=== PATIENT | female | born 1985 | race Caucasian/White ===

== ENCOUNTER 2019-04-22 13:09 | Inpatient (IN) ==
[2019-04-22] MEDS ORDERED: Lidocaine 1% 20 ML MDV INFILT ONE (15:48)
[2019-04-22] MEDS ORDERED: Naloxone 0.4 MG/ML INJ IVP PRN ×2 (15:49→15:50)
[2019-04-22] MEDS ORDERED: Ondansetron ODT 4 MG TAB.RAPDIS SL PRN (15:50)
[2019-04-22] MEDS ORDERED: *HR* Promethazine 25 MG/ML VIAL IVP PRN (15:50)
--- NOTE | 2019-04-22 16:50 | Internal Med History&Physical ---
Date of Encounter: 04/22/19 Time of Encounter: 16:44 Internal Medicine - H&P: HPI Chief complaint: Shortness of breath and cough Admitted From: Intrahospital Transfer Plans for Post Hospital Care: Home History of present illness: Ms. 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 Patient's symptoms began about 2 weeks ago. Was seen in [place] emergency department and diagnosed bronchitis. Discharged on a Z-Franklin. Take this medication to completion but did not have any improvement and she feels worse than she did previously. No sick contacts. Endorses cough productive of whitish sputum as well as shortness of breath, sinus drainage, nasal congestion, and pain in lungs on left side. Subjective fevers and chills. Has chronic nausea that she believes is secondary to kidney disease not particularly worsened usual. Has not missed any dialysis sessions and was last dialyzed yesterday. Recently started back on dialysis after her renal transplant failed about 6 months ago[address] with Dr. Marie. Says that they have been taking off more fluid recently because of her shortness of breath. Labs and imaging at [place]: WBC 10.8 Hg 8.6 PLT 278 Na 133. K 4.8 Cl 91 Bicarb 29 BUN 39 Cr 6.48 CXR Mild interstitial prominence of lung with L basilar opacity and pleural effusion vs pleural scar Past Med Surg Social Fam HX - Past Medical History Medical history: hypertension, renal disease Additional medical history: kidney transplant Psychiatric history: anxiety - Past Surgical History Additional surgical history: Kidney transplant - Social History Smoking Status: Never smoker Smokeless Tobacco Status: No Alcohol use: none Drug use: none Internal Medicine - H&P: Meds Allergy/AdvReac Type Severity Reaction Status Date / Time acetaminophen [From Vicodin] Allergy Hives Verified 11/06/18 08:03 hydrocodone [From Vicodin] Allergy Hives Verified 11/06/18 08:03 All Systems PM: A 10-system review of systems was performed and is negative for pertinent findings except as documented above in the HPI. Review of systems: General: Fevers / Chills / Weight loss / Night sweats Eyes: Blurry Vision / Change in Vision HENT: Ear Pain / Ear Drainage / Rhinorrhea / Throat Pain / Lymphadenopathy Cardiovascular: Chest Pain / Palpatations / Orthopnea / CLINE / Weight gain Lungs: Dyspnea / Wheezing / Cough / Sputum production / Pleurisy Abdomen: Abdomen pain / Abdominal distention / Nausea / Vomiting / Diarrhea / Const : Dysuria / Urinary Frequency / Urinary Urgency / Hematuria Extremities: LE edema / Ext pain / Ext erythema Skin: Rashes / Abrasions / Contusions Psych: Hallucinations / Anxiety / Depression Neuro: Weakness / Numbness / Tingling / Facial Droop / Dysphagia - Constitutional Vitals: Temp Pulse Resp BP Pulse Ox 98.2 F 85 17 132/83 97 04/22/19 15:23 04/22/19 15:23 04/22/19 15:23 04/22/19 15:23 04/22/19 15:23 Exam: General: Ill-appearing and in no acute distress HEENT: No erythema of posterior pharynx. No exudates. Lymphatics: No mandibular or cervical lymphadenopathy Cardiovascular: RRR. No murmurs. No chest wall tenderness. Lungs: Rhonchi in LLQ. Regular chest rise. Abdomen: Non-tender. No rebound or gaurding. Nl bowel sounds. Extremities: No edema. 2+ pulses radial and pedal pulses Skin: No rahses, abrasions, or contusions. Nl cap refill. Psych: Nl attention. A&Ox3 Neuro: blocker and polisher II-XII intact. 5/5 strength. Sensation to light touch and pinprick intact. - Assessment and Plan (1) Sepsis Current Visit: Yes Status: Acute Assessment and plan: Patient with history of end-stage renal disease on immunosuppression presents with 2 weeks of cough and shortness of breath with pleuritic chest pain failing outpatient Z-Franklin in the setting of meeting sepsis criteria on presentation to outside ED (fever 100.5, tachycardic to 123, RR22), LLL rhonchi and physical exam, and chest x-ray concerning for pneumonia. -Was started on antibiotics at outside hospital and given IVF -On admission to [place], vitals has since stabilized -Given her immunosuppressed statu and health care exposure will start with broad spectrum coverage PLAN: - Vancomycin and Cefepime - Sputum cultures - F/u blood cultures @[facility] - Urine strep and legionella Qualifiers: Sepsis type: sepsis due to unspecified organism Sepsis acute organ dysfunction status: without acute organ dysfunction Qualified Code(s): A41.9 - Sepsis, unspecified organism (2) Pneumonia Current Visit: Yes Status: Acute Assessment and plan: Plan per above Qualifiers: Pneumonia type: due to unspecified organism Laterality: left Lung location: lower lobe of lung Qualified Code(s): J18.1 - Lobar pneumonia, unspecified organism (3) Failure of outpatient treatment Current Visit: Yes Status: Acute Assessment and plan: Failed outpatient azithromycin therapy (4) ESRD (end stage renal disease) Current Visit: Yes Status: Acute Assessment and plan: Has not missed any dialysis sessions and was last dialyzed yesterday. Recently started back on dialysis after her renal transplant failed about 6 months ago[address] Follow[address] with Dr. Marie. Says that they have been taking off more fluid recently because of her shortness of breath. - Consult to neprhology - Will re-order home meds once verified (5) Alports syndrome Current Visit: Yes Status: Acute (6) Renovascular hypertension Current Visit: Yes Status: Acute Assessment and plan: Will re-order home meds once verified (7) Immunosuppression due to drug therapy Current Visit: Yes Status: Acute Assessment and plan: Putting a patient risk for adverse events. - Will re-order home meds once verified
[2019-04-22] MEDS: *HR* Heparin 5,000 UNIT/ML VIAL SQ SCH (17:48)
[2019-04-22] MEDS ORDERED: Doxycycline 100 MG in 0.9 % Sodium Chloride Mini Bag 100 ML IVPB SCH (18:00)
[2019-04-22] MEDS ORDERED: cefTRIAXone 2,000 MG in Water for inj. (sterile) 20 ML IVP SCH (18:00)
[2019-04-22] MEDS ORDERED: Cefepime HCl 1,000 MG in Water for inj. (sterile) 10 ML IVP SCH (19:30)
[2019-04-23] MEDS: *HR* Heparin 5,000 UNIT/ML VIAL SQ SCH ×2 (04:37→17:15)
[2019-04-23 05:24] LABS: Basophils % 0.2 %; Eosinophils % 0.2 %; Hematocrit 26.9 % (35.3-44.9); Immature Granulocytes % 1.4 % (0-4); Lymphocytes # 2.5 K/mcL (0.6-4.6); Lymphocytes % 19.7 %; Mean Corpuscular HGB Conc 29.7 g/dL (31.6-35.5); Mean Corpuscular Hemoglobin 30.2 pg (28.0-33.3); Mean Corpuscular Volume 101.5 fL (83.0-100.0); Mean Platelet Volume 11.6 fL (9.4-12.4); Monocytes # 1.6 K/mcL (0.0-1.3); Monocytes % 12.8 %; Neutrophils # 8.5 K/mcL (1.6-8.9); Nucleated Red Blood Cells 0.2 /100 WBC (0); Platelet Count 244 K/mcL (140-400); Red Blood Count 2.65 M/mcL (3.82-4.97); Red Cell Distribution Width 17.7 % (11.5-14.5); Segmented Neutrophils % 65.7 %; White Blood Count 12.9 K/mcL (4.3-11.1)
[2019-04-23 05:46] LABS: Calcium 7.5 mg/dL (8.6-10.3); Potassium 5.5 mEq/L (3.5-5.1)
[2019-04-23 07:51] LABS: Hepatitis B Surface Antibody 93.63 mIU/mL
[2019-04-23 08:03] LABS: Hepatitis B Surface Antigen Nonreactive (Nonreactive)
--- NOTE | 2019-04-23 11:02 | Internal Med Progress Note ---
Hospitalist Progress Note - Encounter Date of Encounter: 04/23/19 Time of Encounter: 09:45 - Subjective Interval History: Patient seen at bedside. Denies chest pain, shortness of breath, palpitations. Denies fever, chills, rigors. Feeling overall better than yesterday. Unsure about her immunosuppresive meds. No acute event overnight. - Exam Vitals: Temp Pulse Resp BP Pulse Ox 98.3 F 62 18 144/92 98 04/23/19 10:47 04/23/19 10:47 04/23/19 10:47 04/23/19 10:47 04/23/19 10:47 Exam: General: Ill-appearing and in no acute distress HEENT: No erythema of posterior pharynx. No exudates. Lymphatics: No mandibular or cervical lymphadenopathy Cardiovascular: RRR. No murmurs. No chest wall tenderness. Lungs: Lungs CTA, no additional sounds. Abdomen: Non-tender. No rebound or gaurding. Nl bowel sounds. Extremities: No edema. 2+ pulses radial and pedal pulses Skin: No rahses, abrasions, or contusions. Nl cap refill. Psych: Nl attention. A&Ox3 Neuro: director meetings II-XII intact. 5/5 strength. Sensation to light touch and pinprick intact. - Assessment and Plan (1) Sepsis Current Visit: Yes Status: Acute Assessment and Plan: History of end-stage renal disease currently on immunosuppressive drugs. Diagnosed with pneumonia in the right middle lobe with a chest x-ray in the emergency department. At the time of presentation, she had fever, chills, rigors. Has been improving with antibiotics. Follow up on the blood cultures and sputum cultures. Continue vancomycin and cefepime. Restart on immunosuppressive drugs once confirmed with the pharmacy. (2) Pneumonia Current Visit: Yes Status: Acute Assessment and Plan: Chest x-ray evidence of pneumonia. Continue antibiotics. (3) Failure of outpatient treatment Current Visit: Yes Status: Acute Assessment and Plan: Failed outpatient azithromycin therapy (4) ESRD (end stage renal disease) Current Visit: Yes Status: Acute Assessment and Plan: No missed dialysis. History of renal transplant. Nephrology onboard. Start the patient on home meds once verified. (5) Alports syndrome Current Visit: Yes Status: Acute (6) Renovascular hypertension Current Visit: Yes Status: Acute Assessment and Plan: Blood pressure has been stable so far. Will re-order home meds once verified (7) Immunosuppression due to drug therapy Current Visit: Yes Status: Acute Assessment and Plan: Putting a patient risk for adverse events. - Will re-order home meds once verified (8) Diarrhea Current Visit: Yes Status: Acute Assessment and Plan: Chronic Contnue immodium as needed , pt takes at home - Time Spent with Patient Total time spent is greater than 50% in coordination of care (as documented) at patient's floor/unit and/or counseling patient: Internal Medicine: Result - Labs CBC & Chem 7: 04/23/19 04:34 04/23/19 04:34 Labs: Short CBC 04/23/19 Range/Units 04:34 WBC 12.9 H (4.3-11.1) K/mcL Hgb 8.0 L (11.5-15.4) g/dL Hct 26.9 L (35.3-44.9) % Plt Count 244 (140-400) K/mcL Neutrophils # 8.5 (1.6-8.9) K/mcL BMP 04/23/19 04:34 Sodium 130 L Potassium 5.5 H Chloride 93 L Carbon Dioxide 23 BUN 46 H Creatinine 7.32 H Glucose 104 Calcium 7.5 L - Impressions Impressions Chest X-Ray 04/22/19 17:03 IMPRESSION: Prominence of the right cardiac border compared to prior exams suggesting possible right middle lobe consolidation from pneumonia. Mild patchy left lower lobe airspace opacity may represent pneumonia. D/ / 04/22/2019 17:16:41 Balta May MD / dawna Interpreting Provider: Balta May MD Consult Discharge Plan - Plan Referrals: Autumn Reese, PIE CRUST MIXER [Primary Care Provider] - (1) Sepsis Qualifiers: Sepsis type: sepsis due to unspecified organism Sepsis acute organ dysfunction status: without acute organ dysfunction Qualified Code(s): A41.9 - Sepsis, unspecified organism (2) Pneumonia Qualifiers: Pneumonia type: due to unspecified organism Laterality: left Lung location: lower lobe of lung Qualified Code(s): J18.1 - Lobar pneumonia, unspecified organism (8) Diarrhea Qualifiers: Diarrhea type: unspecified type Qualified Code(s): R19.7 - Diarrhea, unspec ified
[2019-04-23] MEDS ORDERED: 0.9 % Sodium Chloride 250 ML IVC PRN (11:07)
[2019-04-23] MEDS ORDERED: *HR* Heparin 10,000 UNIT/10 ML VIAL IV PRN (11:07)
[2019-04-23] MEDS ORDERED: 0.9 % Sodium Chloride 1,000 ML PRIME SCH (11:15)
--- NOTE | 2019-04-23 13:05 | Nephrology Consult Note ---
<JustinNadira hinkle Jorge - Last Filed: 04/23/19 14:02> Date of Encounter: 04/23/19 Time of Encounter: 12:59 Assessment and Plan (1) ESRD (end stage renal disease) Status: Acute Current regimen is MWF at [facility]. Plan for HD today. Renal diet Renal vitamins Strict I/O Avoid nephrotoxins and renal dose all medications. Will order additional UF or HD as needed. (2) Alports syndrome Status: Acute History of. (3) Community acquired pneumonia Status: Acute As per primary. Qualifiers: Qualified Code(s): J18.9 - Pneumonia, unspecified organism History of Present Illness - Reason for Consult Consult date: 04/23/19 end stage renal disease Requesting physician: Elijah Lutz - Chief Complaint difficulty in breathing - History of Present Illness Ms. Mejia is a 33 year old female who presented from [place] for shortness of breath. She was transferred to this facility. She has been feeling ill for nearly 2 weeks. Was given a z-morenita by PCP and had no improvement. She has been on HD for approximetly 6 months. She was on HD approximately 10 years ago, and received a kidney transplant. She has been on immunosupression therapy in the past. She is being treated for right middle lobe pneumonia. Denies fever, chills, nausea, vomiting, diarrhea. Admits to poor appetite. Denies chset pain, admits to feeling short of breath. PMH: alport syndrome, failed kidney transplant. [facility] were consulted to manage inpatient HD. HD ordered for today. She has 3 first degree relatives with alport syndrome who were all on HD, they are now. Denies etoh, tobacco use, or illict drug use. Lives at home with significant other. Past Med Surg Social Fam HX - Past Medical History Medical history: hypertension, renal disease Additional medical history: kidney transplant Psychiatric history: anxiety - Past Surgical History Additional surgical history: Kidney transplant - Social History Smoking Status: Never smoker Smokeless Tobacco Status: No Alcohol use: none Drug use: none Medications and Allergies Albuterol Sulfate [Ventolin Hfa] 2 puff IH Q8H PRN 04/23/19 [History] Amlodipine Besylate 2.5 mg PO BID 04/23/19 [History] Aspirin [Lo-Dose Aspirin EC] 81 mg PO DAILY 04/23/19 [History] Calcium Acetate [Phos-LO] 1,334 mg PO TIDWM 04/23/19 [History] Calcium Acetate [Phos-LO] 667 mg PO DAILY 04/23/19 [History] Citalopram Hydrobromide [Citalopram HBr] 10 mg PO DAILY 04/23/19 [History] Famotidine [Heartburn Prevention] 20 mg PO DAILY 04/23/19 [History] Hydrocodone/Acetaminophen [Firebaugh 5-325 Tablet] 1 tab PO Q6H PRN 04/23/19 [History] Levothyroxine [Synthroid] 25 mcg PO 0630 04/23/19 [History] Lidocaine/Prilocaine CREAM [Emla] 1 appl TP AD 04/23/19 [History] Lisinopril [Zestril] 5 mg PO DAILY 04/23/19 [History] Magnesium Oxide [Magnesium] 400 mg PO DAILY 04/23/19 [History] Mycophenolate Sodium [Myfortic] 360 mg PO BID 04/23/19 [History] Ondansetron HCl 4 mg PO Q8H PRN 04/23/19 [History] Sodium Bicarbonate 650 mg PO TID 04/23/19 [History] predniSONE [PredniSONE] 5 mg PO DAILY 04/23/19 [History] Benzonatate [Tessalon] 100 mg PO TID 5 Days #15 capsule 04/25/19 [Rx] Metoprolol [Lopressor] 12.5 mg PO BID tablet 04/25/19 [Rx] levoFLOXacin [Levaquin] 500 mg PO Q48H 6 Days #3 tablet 04/25/19 [Rx] Allergy/AdvReac Type Severity Reaction Status Date / Time hydrocodone [From Vicodin] Allergy Hives Verified 04/23/19 11:00 Review of Systems All Systems review (narrative): The remainder of the systems are negative. Constitutional: fatigue, no chills, no fever(s) Cardiovascular: dyspnea, dyspnea on exertion, no chest pain, no edema Respiratory: cough, no hemoptysis, no wheezing Gastrointestinal: no diarrhea, no nausea, no vomiting Genitourinary Female: no hematuria Exam - Vital Signs Vital signs: Initial Vital Signs Temp Pulse Resp BP Pulse Ox 98.2 F 85 17 132/83 97 04/22/19 15:23 04/22/19 15:23 04/22/19 15:23 04/22/19 15:23 04/22/19 15:23 Vital Signs - Last 8 Hours Temp Pulse Resp BP Pulse Ox 04/23/19 10:47 98.3 F 62 18 144/92 98 04/23/19 06:40 98.2 F 92 18 165/99 96 - General Appearance General appearance: well-developed, well-nourished EENT: ATNC, hearing intact, vision intact Neck: supple Respiratory: clear Cardiology: edema (facial edema noted.), normal S1, normal S2 - Dialysis Access Dialysis Vascular Access: Arteriovenous Fistula thrill: Yes bruit: Yes Gastrointestinal: normoactive bowel sounds, no tenderness, no guarding Integumentary: no rash, warm and dry Neurologic: alert and oriented x3 Musculoskeletal: no deformities, no erythema Psychiatric: mood/affect appropriate, cooperative Results - Lab Results 04/23/19 04:34 04/23/19 04:34 Most recent lab results 04/23/19 04:34 Calcium 7.5 L Consult Discharge Plan - Plan Instructions: Benzonatate (By mouth), Levofloxacin (By mouth) Referrals: Autumn Reese CNP [Primary Care Provider] - 04/30/19 2:00 pm (Please follow up as schedule...) Prescriptions: levoFLOXacin [Levaquin] 500 mg PO Q48H 6 Days #3 tablet Transmission Status: Received by [facility]/pharmacy #[id number] Benzonatate [Tessalon] 100 mg PO TID 5 Days #15 capsule Transmission Status: Received by [facility]/pharmacy #[id number] <Emory Dunbar - Last Filed: 05/04/19 23:16> Date of Encounter: 04/23/19 Assessment and Plan (1) ESRD (end stage renal disease) Status: Acute (2) Alports syndrome Status: Acute (3) Community acquired pneumonia Status: Acute Qualifiers: Qualified Code(s): J18.9 - Pneumonia, unspecified organism Exam - Vital Signs Vital signs: Initial Vital Signs Temp Pulse Resp BP Pulse Ox 98.2 F 85 17 132/83 97 04/22/19 15:23 04/22/19 15:23 04/22/19 15:23 04/22/19 15:23 04/22/19 15:23 Results - Lab Results 04/25/19 02:36 04/25/19 02:36 - Attending Attestation I examined this patient and my medical decision-making was reviewed with the Resident Physician/OPERATIONS SUPERVISOR. I agree with the documented findings, disposition and treatment plan as described except to the extent set forth below. In brief; 33 y o female with PMH of Alport's, ESRD s/p failed renal transplant on HD MWF admitted with progressive SOB despite abx and diagnosed with PNA. renal consulted for ESRD management. Pt seen and examined on HD, doing well. On exam: NAD, facial edema noted, Lungs with good aeration but coarse bilat, Heart S1S2, Abd soft NT/ND, Ext with LE edema bilat and Neuro AAOx3. Continue HD with UF as tolerated. renal diet advised. Fluid restriction advised. Renally dose all meds.
[2019-04-23] MEDS ORDERED: ONDANSETRON HCL 4 MG PO PRN (17:58)
[2019-04-23] MEDS ORDERED: *HR* HYDROcodone/Acet 5/325 mg TABLET PO PRN (17:58)
[2019-04-23] MEDS ORDERED: Cefepime HCl 1,000 MG in 0.9 % Sodium Chloride Mini Bag 100 ML IVPB SCH (18:00)
[2019-04-23] MEDS: amLODIPine 5 MG TABLET PO SCH (20:51)
[2019-04-23] MEDS: Mycophenolate Sodium (DR) 180 MG TABLET.DR PO SCH (20:51)
[2019-04-24] MEDS ORDERED: Melatonin 3 MG TABLET PO ONE ×2 (02:21→20:45)
[2019-04-24 02:39] LABS: Basophils % 0.2 %; Eosinophils # 0.2 K/mcL (0.0-0.6); Eosinophils % 1.7 %; Hematocrit 28.7 % (35.3-44.9); Hemoglobin 8.6 g/dL (11.5-15.4); Immature Granulocytes % 1.1 % (0-4); Lymphocytes % 19.5 %; Mean Corpuscular Hemoglobin 30.3 pg (28.0-33.3); Mean Corpuscular Volume 101.1 fL (83.0-100.0); Mean Platelet Volume 11.2 fL (9.4-12.4); Monocytes # 1.6 K/mcL (0.0-1.3); Neutrophils # 6.2 K/mcL (1.6-8.9); Nucleated Red Blood Cells 0.2 /100 WBC (0); Platelet Count 274 K/mcL (140-400); Red Blood Count 2.84 M/mcL (3.82-4.97); Red Cell Distribution Width 17.3 % (11.5-14.5); Segmented Neutrophils % 61.5 %; White Blood Count 10.1 K/mcL (4.3-11.1)
[2019-04-24 03:04] LABS: Calcium 7.6 mg/dL (8.6-10.3); Potassium 4.1 mEq/L (3.5-5.1)
[2019-04-24] MEDS: Levothyroxine 25 MCG TABLET PO SCH (06:04)
[2019-04-24] MEDS: *HR* Heparin 5,000 UNIT/ML VIAL SQ SCH ×2 (06:04→17:02)
[2019-04-24] MEDS: Aspirin Enteric Coated 81 MG Tablet PO SCH (07:16)
[2019-04-24] MEDS: predniSONE 5 MG TABLET PO SCH (07:16)
[2019-04-24] MEDS: Mycophenolate Sodium (DR) 180 MG TABLET.DR PO SCH ×2 (07:16→20:41)
[2019-04-24] MEDS: Calcium Acetate 667 MG CAPSULE PO SCH ×3 (07:17→15:29)
[2019-04-24] MEDS: Magnesium Oxide 400 MG TABLET PO SCH (07:17)
[2019-04-24] MEDS: amLODIPine 5 MG TABLET PO SCH ×2 (07:17→20:41)
[2019-04-24] MEDS ORDERED: Calcium Acetate 667 MG CAPSULE PO PRN (09:00)
[2019-04-24] MEDS ORDERED: Famotidine 20 MG TABLET PO SCH ×2 (09:00→18:00)
--- NOTE | 2019-04-24 12:18 | Internal Med Progress Note ---
Hospitalist Progress Note - Encounter Date of Encounter: 04/24/19 Time of Encounter: 12:00 - Subjective Interval History: Seen at bedside, had temp of 100 overnight. Endorses cough, denies chest pain or SOB. Deneis chills, rigors, feeling much better than yesterday. No other complaints. - Exam Vitals: Temp Pulse Resp BP Pulse Ox 98.4 F 86 18 137/89 96 04/24/19 10:56 04/24/19 10:56 04/24/19 10:56 04/24/19 10:56 04/24/19 10:56 Exam: General:Alert and oriented and in no acute distress HEENT: No erythema of posterior pharynx. No exudates. Lymphatics: No mandibular or cervical lymphadenopathy Cardiovascular: RRR. No murmurs. No chest wall tenderness. Lungs: Lungs CTA, no additional sounds. Abdomen: Non-tender. No rebound or gaurding. Nl bowel sounds. Extremities: No edema. 2+ pulses radial and pedal pulses Skin: No rahses, abrasions, or contusions. Nl cap refill. Psych: Nl attention. A&Ox3 Neuro: butcher chicken and fish II-XII intact. 5/5 strength. Sensation to light touch and pinprick intact. - Assessment and Plan (1) Sepsis Current Visit: Yes Status: Acute Assessment and Plan: History of end-stage renal disease currently on immunosuppressive drugs. Diagnosed with pneumonia in the right middle lobe with a chest x-ray in the emergency department. At the time of presentation, she had fever, chills, rigors. Has been improving with antibiotics. Did have a temp of 100 overnight. Follow up on the blood cultures and sputum cultures. Continue cefepime. Anticipate discharge tomorrow (2) Pneumonia Current Visit: Yes Status: Acute Assessment and Plan: Chest x-ray evidence of pneumonia. Continue antibiotics. (3) Failure of outpatient treatment Current Visit: Yes Status: Acute Assessment and Plan: Failed outpatient azithromycin therapy (4) ESRD (end stage renal disease) Current Visit: Yes Status: Acute Assessment and Plan: No missed dialysis. History of renal transplant. Nephrology onboard. Start the patient on home meds (5) Alports syndrome Current Visit: Yes Status: Acute (6) Renovascular hypertension Current Visit: Yes Status: Acute Assessment and Plan: Blood pressure has been stable so far. Home meds reordered (7) Immunosuppression due to drug therapy Current Visit: Yes Status: Acute Assessment and Plan: Putting a patient risk for adverse events. Continue mycophenolate (8) Diarrhea Current Visit: Yes Status: Acute Assessment and Plan: Chronic Contnue immodium as needed , pt takes at home (9) Hypothyroidism Current Visit: Yes Status: Acute Assessment and Plan: Continue synthyroid (10) History of renal transplant Current Visit: Yes Status: Acute Assessment and Plan: COntinue the pt homed meds, mycophenolate and prednisone (11) Cough Current Visit: Yes Status: Acute Assessment and Plan: Still coughing, minimal releif with robitussin. WIlll give a trial of tessalon perles - Time Spent with Patient Total time spent is greater than 50% in coordination of care (as documented) at patient's floor/unit and/or counseling patient: Internal Medicine: Result - Labs CBC & Chem 7: 04/24/19 02:03 04/24/19 02:03 Labs: Short CBC 04/24/19 Range/Units 02:03 WBC 10.1 (4.3-11.1) K/mcL Hgb 8.6 L (11.5-15.4) g/dL Hct 28.7 L (35.3-44.9) % Plt Count 274 (140-400) K/mcL Neutrophils # 6.2 (1.6-8.9) K/mcL BMP 04/24/19 02:03 Sodium 137 Potassium 4.1 D Chloride 94 L Carbon Dioxide 30 H BUN 30 H Creatinine 5.15 H Glucose 126 H Calcium 7.6 L Consult Discharge Plan - Plan Referrals: Autumn Reese, EXECUTIVE ASSISTANT [Primary Care Provider] - (1) Sepsis Qualifiers: Sepsis type: sepsis due to unspecified organism Sepsis acute organ dysfunction status: without acute organ dysfunction Qualified Code(s): A41.9 - Sepsis, unspecified organism (2) Pneumonia Qualifiers: Pneumonia type: due to unspecified organism Laterality: left Lung location: lower lobe of lung Qualified Code(s): J18.1 - Lobar pneumonia, unspecified organism (8) Diarrhea Qualifiers: Diarrhea type: unspecified type Qualified Code(s): R19.7 - Diarrhea, unspecified
--- NOTE | 2019-04-24 13:16 | Nephrology Progress Note ---
Date of Encounter: 04/24/19 Time of Encounter: 13:14 - Assessment and Plan (1) ESRD (end stage renal disease) Current Visit: Yes Status: Acute Current regimen is MWF at [facility]. HD completed yesterday, plan for HD tomorrow. Renal diet Renal vitamins Strict I/O Avoid nephrotoxins and renal dose all medications. Will order additional UF or HD as needed. (2) Alports syndrome Current Visit: Yes Status: Acute History of. (3) Community acquired pneumonia Current Visit: Yes Status: Acute As per primary. Qualifiers: Qualified Code(s): J18.9 - Pneumonia, unspecified organism Subjective Principal diagnosis: pneumonia Interval history: Pt seen and examined, is feeling fatigued. Denies chest pain or shortness of breath. Admits to cough. Denies nausea, vomiting, diarrhea. Objective - Vital Signs Vital signs: Vital Signs Temp Pulse Resp BP Pulse Ox 04/24/19 10:56 98.4 F 86 18 137/89 96 04/24/19 06:36 98.5 F 60 18 123/76 95 04/24/19 03:42 99.7 F H 89 17 135/99 96 04/23/19 23:05 99.9 F H 117 17 121/86 93 04/23/19 18:50 99.7 F H 119 17 134/78 100 04/23/19 16:44 99.7 F H 137 18 156/112 99 04/23/19 14:46 98.4 F 16 156/116 04/23/19 14:45 165/119 04/23/19 14:30 161/110 04/23/19 14:15 155/107 04/23/19 14:00 166/109 04/23/19 13:45 151/82 04/23/19 13:30 139/107 04/23/19 13:15 151/109 Intake and Output 04/23/19 04/24/19 04/24/19 23:59 07:59 15:59 Intake Total 460 / 1060 Output Total 0 / 3600 Balance 460 / -2540 Intake: Oral 460 / 460 Output: Urine 0 / 0 Other: # Voids 0 2 Weight 71.8 kg Patient Weight 04/24/19 23:59 Weight 71.8 kg - General Appearance General appearance: Present: well-developed, well-nourished EENT: Present: ATNC, hearing intact, vision intact Neck: Present: supple Respiratory: Present: clear Cardiology: Present: no edema, normal S1, normal S2 Dialysis Vascular Access: Arteriovenous Fistula thrill: Yes bruit: Yes Gastrointestinal: Present: normoactive bowel sounds, no tenderness, no guarding Integumentary: Present: no rash, warm and dry Neurologic: Present: alert and oriented x3 Musculoskeletal: Present: no deformities, no erythema Psychiatric: Present: mood/affect appropriate, cooperative - Lab 04/24/19 02:03 04/24/19 02:03 Most recent lab results 04/24/19 02:03 Calcium 7.6 L Consult Discharge Plan - Plan Referrals: Autumn Reese, LUSTER REPAIRER [Primary Care Provider] -
[2019-04-24] MEDS ORDERED: Aminoglycoside Consult 1 EACH MC ONE (14:18)
[2019-04-24] MEDS: Benzonatate 100 MG CAPSULE PO SCH ×2 (15:29→20:41)
[2019-04-24] MEDS ORDERED: Cefepime HCl 1,000 MG in Water for inj. (sterile) 10 ML IVPB SCH (18:00)
[2019-04-25 03:06] LABS: Basophils % 0.1 %; Eosinophils # 0.2 K/mcL (0.0-0.6); Eosinophils % 2.3 %; Hematocrit 25.6 % (35.3-44.9); Hemoglobin 7.6 g/dL (11.5-15.4); Immature Granulocytes % 1.4 % (0-4); Lymphocytes # 1.7 K/mcL (0.6-4.6); Lymphocytes % 20.7 %; Mean Corpuscular HGB Conc 29.7 g/dL (31.6-35.5); Mean Corpuscular Hemoglobin 30.4 pg (28.0-33.3); Mean Corpuscular Volume 102.4 fL (83.0-100.0); Mean Platelet Volume 11.2 fL (9.4-12.4); Monocytes # 1.2 K/mcL (0.0-1.3); Monocytes % 14.2 %; Neutrophils # 5.1 K/mcL (1.6-8.9); Nucleated Red Blood Cells 0.2 /100 WBC (0); Platelet Count 228 K/mcL (140-400); Red Cell Distribution Width 17.5 % (11.5-14.5); Segmented Neutrophils % 61.3 %; White Blood Count 8.3 K/mcL (4.3-11.1)
[2019-04-25 03:27] LABS: Calcium 8.1 mg/dL (8.6-10.3); Potassium 4.2 mEq/L (3.5-5.1)
[2019-04-25] MEDS: Levothyroxine 25 MCG TABLET PO SCH (05:43)
[2019-04-25] MEDS: *HR* Heparin 5,000 UNIT/ML VIAL SQ SCH (05:43)
--- NOTE | 2019-04-25 05:59 | Electrocardiograph Report ---
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
[2019-04-25] MEDS: Aspirin Enteric Coated 81 MG Tablet PO SCH (07:44)
[2019-04-25] MEDS: predniSONE 5 MG TABLET PO SCH (07:44)
[2019-04-25] MEDS: Calcium Acetate 667 MG CAPSULE PO SCH ×2 (07:44→12:22)
[2019-04-25] MEDS: Mycophenolate Sodium (DR) 180 MG TABLET.DR PO SCH (07:44)
[2019-04-25] MEDS: Magnesium Oxide 400 MG TABLET PO SCH (07:44)
[2019-04-25] MEDS: Benzonatate 100 MG CAPSULE PO SCH (07:44)
[2019-04-25] MEDS: amLODIPine 5 MG TABLET PO SCH (07:45)
[2019-04-25] MEDS ORDERED: 0.9 % Sodium Chloride 250 ML IVC PRN (08:11)
[2019-04-25] MEDS ORDERED: *HR* Heparin 10,000 UNIT/10 ML VIAL IV PRN (08:11)
[2019-04-25] MEDS ORDERED: levoFLOXacin 750 MG TABLET PO ONE (11:02)
--- NOTE | 2019-04-25 11:19 | Discharge Summary ---
- NOTES TO OUTPATIENT PROVIDER Notes to Outpatient Provider: Came wiht PNA, being discharged wiht the oral antibiotic for the total covergae of 10 days. Orders not resulted at time of discharge: Pending orders 04/22/19 16:51 Legionella Antigen [RM] Routine S. Pneumoniae Antigen [RM] Routine 04/22/19 17:36 Culture,Sputum with Gram Stain [RM] Routine Date of Encounter: 04/25/19 Time of Encounter: 09:00 - Discharge Diagnosis (1) Sepsis Priority: Primary Status: Acute Qualifiers: Sepsis type: sepsis due to unspecified organism Sepsis acute organ dysfunction status: without acute organ dysfunction Qualified Code(s): A41.9 - Sepsis, unspecified organism (2) Pneumonia Priority: Secondary Status: Acute Qualifiers: Pneumonia type: due to unspecified organism Laterality: left Lung location: lower lobe of lung Qualified Code(s): J18.1 - Lobar pneumonia, unspecified organism (3) Failure of outpatient treatment Priority: Secondary Status: Acute (4) ESRD (end stage renal disease) Priority: Secondary Status: Acute (5) Alports syndrome Priority: Secondary Status: Acute (6) Renovascular hypertension Priority: Secondary Status: Acute (7) Immunosuppression due to drug therapy Priority: Secondary Status: Acute (8) Diarrhea Priority: Secondary Status: Acute Qualifiers: Diarrhea type: unspecified type Qualified Code(s): R19.7 - Diarrhea, unspecified (9) Hypothyroidism Priority: Secondary Status: Acute Qualifiers: Hypothyroidism type: unspecified Qualified Code(s): E03.9 - Hypothyroidism, unspecified (10) History of renal transplant Priority: Secondary Status: Acute (11) Cough Priority: Secondary Status: Acute Hospital course: Ms. Mejia is a 33 year old female with a past medical history significant for Alport syndrome and ESRD, status post kidney transplant currently on mycophenolate, presents to the hospital from the outside hospital because of the pneumonia. She was initially treated for bronchitis with azithromycin without any relief. In the hospital she was given initially vancomycin and cefepime which was de-escalated to cefepime after MRSA swab was negative. Patient condition improved without antibiotics over the course of 3 days. She also got a regular hemodialysis. Today, she is feeling fine. Denies fever, chills, rigors. Denies shortness of breath. Endorses cough, improving with Tessalon Perles. She will be given one note of some 50 mg of levofloxacin now and 500 mg of levofloxacin every 48 hours for 3 doses to complete a course of 10 days. She is being discharged in stable condition. - Time Spent with Patient Total time spent providing and/or coordinating discharge services: 35 minutes - Discharge Medications Prescriptions: New RX: levoFLOXacin [Levaquin] 500 mg PO Q48H 6 Days #3 tablet RX: Metoprolol [Lopressor] 12.5 mg PO BID tablet RX: Benzonatate [Tessalon] 100 mg PO TID 5 Days #15 capsule Continued RX: Sodium Bicarbonate 650 mg PO TID RX: predniSONE [PredniSONE] 5 mg PO DAILY RX: Ondansetron HCl 4 mg PO Q8H PRN PRN Reason: Nausea RX: Mycophenolate Sodium [Myfortic] 360 mg PO BID RX: Magnesium Oxide [Magnesium] 400 mg PO DAILY RX: Lisinopril [Zestril] 5 mg PO DAILY RX: Lidocaine/Prilocaine CREAM [Emla] 1 appl TP AD RX: Levothyroxine [Synthroid] 25 mcg PO 30 RX: Hydrocodone/Acetaminophen [Comptche 5-325 Tablet] 1 tab PO Q6H PRN PRN Reason: Pain RX: Famotidine [Heartburn Prevention] 20 mg PO DAILY RX: Citalopram Hydrobromide [Citalopram HBr] 10 mg PO DAILY RX: Calcium Acetate [Phos-LO] 667 mg PO DAILY RX: Calcium Acetate [Phos-LO] 1,334 mg PO TIDWM RX: Aspirin [Lo-Dose Aspirin EC] 81 mg PO DAILY RX: Amlodipine Besylate 2.5 mg PO BID RX: Albuterol Sulfate [Ventolin Hfa] 2 puff IH Q8H PRN PRN Reason: Shortness Of Breath Discontinued Metoprolol [Lopressor] 25 mg PO DAILY Home Medications: Albuterol Sulfate [Ventolin Hfa] 2 puff IH Q8H PRN 04/23/19 [History] Amlodipine Besylate 2.5 mg PO BID 04/23/19 [History] Aspirin [Lo-Dose Aspirin EC] 81 mg PO DAILY 04/23/19 [History] Calcium Acetate [Phos-LO] 1,334 mg PO TIDWM 04/23/19 [History] Calcium Acetate [Phos-LO] 667 mg PO DAILY 04/23/19 [History] Citalopram Hydrobromide [Citalopram HBr] 10 mg PO DAILY 04/23/19 [History] Famotidine [Heartburn Prevention] 20 mg PO DAILY 04/23/19 [History] Hydrocodone/Acetaminophen [Comptche 5-325 Tablet] 1 tab PO Q6H PRN 04/23/19 [History] Levothyroxine [Synthroid] 25 mcg PO 0630 04/23/19 [History] Lidocaine/Prilocaine CREAM [Emla] 1 appl TP AD 04/23/19 [History] Lisinopril [Zestril] 5 mg PO DAILY 04/23/19 [History] Magnesium Oxide [Magnesium] 400 mg PO DAILY 04/23/19 [History] Mycophenolate Sodium [Myfortic] 360 mg PO BID 04/23/19 [History] Ondansetron HCl 4 mg PO Q8H PRN 04/23/19 [History] Sodium Bicarbonate 650 mg PO TID 04/23/19 [History] predniSONE [PredniSONE] 5 mg PO DAILY 04/23/19 [History] Benzonatate [Tessalon] 100 mg PO TID 5 Days #15 capsule 04/25/19 [Rx] Metoprolol [Lopressor] 12.5 mg PO BID tablet 04/25/19 [Rx] levoFLOXacin [Levaquin] 500 mg PO Q48H 6 Days #3 tablet 04/25/19 [Rx] Allergies/Adverse Reactions: Allergy/AdvReac Type Severity Reaction Status Date / Time hydrocodone [From Vicodin] Allergy Hives Verified 04/23/19 11:00 Date of admission: 04/23/19 08:41 Primary care physician: Autumn Reese CNP Consults: 04/22/19 16:50 Consult to Nephrology [CONS] Routine Consulting Provider: Kidney Raven/DEISY/ARA/DOROTHEA Reason for Consult: known patient of Dr. Merino here for PNA M/W/F HD Call Completed: No 04/23/19 11:15 Consult to Dialysis [CONS] ONCE 04/25/19 08:15 Consult to Dialysis [CONS] ONCE - Constitutional Vitals: Temp Pulse Resp BP Pulse Ox 98.8 F 85 16 157/103 98 04/25/19 07:49 04/25/19 07:49 04/25/19 07:49 04/25/19 07:49 04/25/19 07:49 Exam: General:Alert and oriented and in no acute distress HEENT: No erythema of posterior pharynx. No exudates. Lymphatics: No mandibular or cervical lymphadenopathy Cardiovascular: RRR. No murmurs. No chest wall tenderness. Lungs: Lungs CTA, no additional sounds. Abdomen: Non-tender. No rebound or gaurding. Nl bowel sounds. Extremities: No edema. 2+ pulses radial and pedal pulses Skin: No rahses, abrasions, or contusions. Nl cap refill. Psych: Nl attention. 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 5/5 strength. Sensation to light touch and pinprick intact. - Patient Status Disposition: Home, Self-Care Condition: Good Functional capacity at discharge: independent ambulation Overall status at discharge: patient is back to baseline - Discharge Instructions Follow Up With: Autumn Reese [employer] [Primary Care Provider] - 04/30/19 2:00 pm (Please follow up as schedule...) - Diet and Activity Activity: increase activity as tolerated Diet: advance to your usual diet
--- NOTE | 2019-04-25 12:43 | Nephrology Progress Note ---
Date of Encounter: 04/25/19 Time of Encounter: 12:41 - Assessment and Plan (1) ESRD (end stage renal disease) Current Visit: Yes Status: Acute Current regimen is M[facility] at [facility]. HD in progress for today. May go home from a renal standpoint. Renal diet Renal vitamins Strict I/O Avoid nephrotoxins and renal dose all medications. Will order additional UF or HD as needed. (2) Alports syndrome Current Visit: Yes Status: Acute History of. (3) Community acquired pneumonia Current Visit: Yes Status: Acute As per primary. Qualifiers: Qualified Code(s): J18.9 - Pneumonia, unspecified organism Subjective Principal diagnosis: pneumonia Interval history: Pt seen and examined, is feeling much better today. Seen in HD, tolerating well. Denies chest pain or shortness of breath. Admits to cough. Denies nausea, vomiting, diarrhea. Objective - Vital Signs Vital signs: Vital Signs Temp Pulse Resp BP Pulse Ox 04/25/19 07:49 98.8 F 85 16 157/103 98 04/25/19 04:15 98.0 F 88 12 157/97 96 04/25/19 00:36 98.1 F 84 16 132/89 95 04/24/19 19:05 98.0 F 90 14 146/93 97 04/24/19 16:20 98.4 F 99 18 117/74 93 Intake and Output 04/24/19 04/25/19 04/25/19 23:59 07:59 15:59 Intake Total 120 / 120 Output Total 0 / 0 Balance 0 / 120 120 / 120 Intake: Oral 120 / 120 Output: Urine 0 / 0 Other: Meal Dinner Breakfast Percent of Meal Consumed 35% 100% Weight 76.4 kg Patient Weight 04/25/19 23:59 Weight 76.4 kg - General Appearance General appearance: Present: well-developed, well-nourished EENT: Present: ATNC, hearing intact, vision intact Neck: Present: supple Respiratory: Present: clear Cardiology: Present: no edema, normal S1, normal S2 Dialysis Vascular Access: Arteriovenous Fistula thrill: Yes bruit: Yes Gastrointestinal: Present: normoactive bowel sounds, no tenderness, no guarding Integumentary: Present: no rash, warm and dry Neurologic: Present: alert and oriented x3 Musculoskeletal: Present: no deformities, no erythema Psychiatric: Present: mood/affect appropriate, cooperative - Lab 04/25/19 02:36 04/25/19 02:36 Most recent lab results 04/25/19 02:36 Calcium 8.1 L Consult Discharge Plan - Plan Referrals: Autumn Reese CNP [Primary Care Provider] - 04/30/19 2:00 pm (Please follow up as schedule...) Prescriptions: levoFLOXacin [Levaquin] 500 mg PO Q48H 6 Days #3 tablet Transmission Status: Received by [facility]/pharmacy #[id number] Benzonatate [Tessalon] 100 mg PO TID 5 Days #15 capsule Transmission Status: Received by [facility]/pharmacy #[id number]
[2019-04-25 14:03] VITALS: BP 165/98
[2019-04-27] MEDS ORDERED: levoFLOXacin 500 MG TABLET PO SCH (09:00)
== END 2019-04-25 14:19 | disposition home or self-care (01) | DRG 871 ==
LOC: 2ANU → SUATTDRO 14:57
PROVIDERS: ADMIT Internal Medicine; ATTEND Internal Medicine

== ENCOUNTER 2019-05-25 11:35 | Inpatient (IN) ==
[2019-05-25] MEDS ORDERED: Naloxone 0.4 MG/ML INJ IVP PRN (14:29)
[2019-05-25] MEDS ORDERED: Ipratropium/Albuterol Neb 3 ML IH PRN (14:40)
[2019-05-25] MEDS ORDERED: Ondansetron ODT 4 MG TAB.RAPDIS PO PRN (15:54)
[2019-05-25] MEDS: Ipratropium/Albuterol Neb 3 ML IH SCH ×2 (16:34→22:54)
[2019-05-25] MEDS: Calcium Acetate 667 MG CAPSULE PO SCH (17:29)
[2019-05-25] MEDS: Piperacillin/Tazobactam 3.375 GM in 0.9 % Sodium Chloride Mini Bag 100 ML IVPB SCH (22:00)
[2019-05-26 01:12] LABS: Basophils % 0.2 %; Eosinophils # 0.1 K/mcL (0.0-0.6); Eosinophils % 1.4 %; Hematocrit 24.7 % (35.3-44.9); Hemoglobin 7.4 g/dL (11.5-15.4); Immature Granulocytes % 0.6 % (0-4); Lymphocytes # 1.3 K/mcL (0.6-4.6); Lymphocytes % 20.5 %; Mean Corpuscular Hemoglobin 30.6 pg (28.0-33.3); Mean Corpuscular Volume 102.1 fL (83.0-100.0); Mean Platelet Volume 11.7 fL (9.4-12.4); Monocytes # 0.8 K/mcL (0.0-1.3); Neutrophils # 4.1 K/mcL (1.6-8.9); Platelet Count 147 K/mcL (140-400); Red Blood Count 2.42 M/mcL (3.82-4.97); Red Cell Distribution Width 21.2 % (11.5-14.5); Segmented Neutrophils % 65.3 %; White Blood Count 6.3 K/mcL (4.3-11.1)
[2019-05-26 01:32] LABS: Calcium 7.9 mg/dL (8.6-10.3); Phosphorous 6.3 mg/dL (2.7-4.5); Potassium 4.2 mEq/L (3.5-5.1)
[2019-05-26] MEDS: Ipratropium/Albuterol Neb 3 ML IH SCH ×4 (04:23→22:30)
[2019-05-26] MEDS: Levothyroxine 25 MCG TABLET PO SCH (04:28)
[2019-05-26] MEDS ORDERED: 0.9 % Sodium Chloride 250 ML IVC PRN (07:01)
[2019-05-26] MEDS: Piperacillin/Tazobactam 3.375 GM in 0.9 % Sodium Chloride Mini Bag 100 ML IVPB SCH ×2 (08:15→16:38)
[2019-05-26] MEDS: predniSONE 5 MG TABLET PO SCH (08:16)
[2019-05-26] MEDS: Magnesium Oxide 400 MG TABLET PO SCH (08:16)
[2019-05-26] MEDS: Calcium Acetate 667 MG CAPSULE PO SCH ×3 (08:16→16:38)
[2019-05-26] MEDS: Famotidine 20 MG TABLET PO SCH (08:16)
[2019-05-26] MEDS: Aspirin Enteric Coated 81 MG Tablet PO SCH (08:16)
[2019-05-26] MEDS ORDERED: Calcium Acetate 667 MG CAPSULE PO SCH (09:00)
[2019-05-26] MEDS: 0.9 % Sodium Chloride 1,000 ML PRIME SCH (09:20)
[2019-05-26] MEDS ORDERED: Albuterol 2.5 MG/3 ML NEBULIZER IH PRN (10:29)
[2019-05-26 13:19] LABS: INR 1.2; Prothrombin Time 13.7 Seconds (9.4-12.1)
[2019-05-26 14:32] LABS: Glucose,Pleural Fluid 120 mg/dL (No Ref Range); LDH,Pleural Fluid 70 Units/L (No Ref Range); Total Protein,Pleural Fluid < 3.0 g/dL
[2019-05-26 15:05] LABS: RBC,Pleural Fluid 0.004 M/mcL
[2019-05-26 16:42] LABS: Appearance of Pleural Fl Cloudy (Clear)
[2019-05-26] MEDS: rOPINIRole 1 MG TABLET PO SCH (22:04)
[2019-05-27] MEDS: Ipratropium/Albuterol Neb 3 ML IH SCH ×4 (03:53→21:05)
[2019-05-27 06:25] LABS: Basophils % 0.2 %; Eosinophils # 0.1 K/mcL (0.0-0.6); Eosinophils % 2.1 %; Hematocrit 23.3 % (35.3-44.9); Hemoglobin 6.8 g/dL (11.5-15.4); Immature Granulocytes % 0.8 % (0-4); Lymphocytes # 1.1 K/mcL (0.6-4.6); Lymphocytes % 20.5 %; Mean Corpuscular HGB Conc 29.2 g/dL (31.6-35.5); Mean Corpuscular Hemoglobin 30.9 pg (28.0-33.3); Mean Corpuscular Volume 105.9 fL (83.0-100.0); Mean Platelet Volume 11.5 fL (9.4-12.4); Monocytes # 0.7 K/mcL (0.0-1.3); Monocytes % 12.8 %; Neutrophils # 3.4 K/mcL (1.6-8.9); Platelet Count 129 K/mcL (140-400); Red Cell Distribution Width 20.7 % (11.5-14.5); Segmented Neutrophils % 63.6 %; White Blood Count 5.3 K/mcL (4.3-11.1)
[2019-05-27 06:44] LABS: Calcium 8.1 mg/dL (8.6-10.3); Potassium 4.8 mEq/L (3.5-5.1)
[2019-05-27] MEDS: Levothyroxine 25 MCG TABLET PO SCH (07:25)
[2019-05-27] MEDS: Piperacillin/Tazobactam 3.375 GM in 0.9 % Sodium Chloride Mini Bag 100 ML IVPB SCH ×2 (07:26→17:02)
[2019-05-27] MEDS: Aspirin Enteric Coated 81 MG Tablet PO SCH (08:28)
[2019-05-27] MEDS: Calcium Acetate 667 MG CAPSULE PO SCH ×3 (08:29→17:01)
[2019-05-27] MEDS: Famotidine 20 MG TABLET PO SCH (08:29)
[2019-05-27] MEDS: predniSONE 5 MG TABLET PO SCH (08:29)
[2019-05-27] MEDS: Magnesium Oxide 400 MG TABLET PO SCH (08:29)
[2019-05-27] MEDS ORDERED: CALCIUM ACETATE 667 MG PO PRN (08:58)
[2019-05-27] MEDS ORDERED: Calcium Acetate 667 MG CAPSULE PO PRN (09:28)
[2019-05-27 11:42] LABS: Fluid Source for Albumin PLEURAL FLUID
[2019-05-27] MEDS ORDERED: 0.9 % Sodium Chloride 250 ML ONE (12:16)
[2019-05-27] MEDS: rOPINIRole 1 MG TABLET PO SCH (20:07)
[2019-05-27] MEDS ORDERED: tiZANidine 4 MG TABLET PO ONE (21:37)
[2019-05-28] MEDS ORDERED: *HR* LORazepam 2 MG/ML VIAL IVP ONE (00:15)
[2019-05-28] MEDS: Ipratropium/Albuterol Neb 3 ML IH SCH ×4 (03:15→21:57)
[2019-05-28] MEDS: Piperacillin/Tazobactam 3.375 GM in 0.9 % Sodium Chloride Mini Bag 100 ML IVPB SCH ×2 (05:37→17:02)
[2019-05-28] MEDS: Levothyroxine 25 MCG TABLET PO SCH (05:37)
[2019-05-28 06:09] LABS: Basophils % 0.2 %; Eosinophils # 0.1 K/mcL (0.0-0.6); Eosinophils % 2.2 %; Hematocrit 25.8 % (35.3-44.9); Hemoglobin 8.2 g/dL (11.5-15.4); Immature Granulocytes % 0.8 % (0-4); Lymphocytes # 1.1 K/mcL (0.6-4.6); Lymphocytes % 18.6 %; Mean Corpuscular HGB Conc 31.8 g/dL (31.6-35.5); Mean Corpuscular Hemoglobin 30.9 pg (28.0-33.3); Mean Platelet Volume 11.9 fL (9.4-12.4); Monocytes # 0.7 K/mcL (0.0-1.3); Monocytes % 11.3 %; Platelet Count 153 K/mcL (140-400); Red Blood Count 2.65 M/mcL (3.82-4.97); Red Cell Distribution Width 20.4 % (11.5-14.5); Segmented Neutrophils % 66.9 %; White Blood Count 5.9 K/mcL (4.3-11.1)
[2019-05-28 06:11] LABS: Mean Corpuscular Volume 97.4 fL (83.0-100.0)
[2019-05-28 06:32] LABS: Calcium 8.5 mg/dL (8.6-10.3); Potassium 5.3 mEq/L (3.5-5.1)
[2019-05-28] MEDS ORDERED: 0.9 % Sodium Chloride 250 ML IVC PRN (07:59)
[2019-05-28] MEDS: predniSONE 5 MG TABLET PO SCH (08:18)
[2019-05-28] MEDS: Aspirin Enteric Coated 81 MG Tablet PO SCH (08:18)
[2019-05-28] MEDS: Calcium Acetate 667 MG CAPSULE PO SCH ×3 (08:18→17:01)
[2019-05-28] MEDS: Magnesium Oxide 400 MG TABLET PO SCH (08:18)
[2019-05-28] MEDS: rOPINIRole 1 MG TABLET PO SCH (20:45)
[2019-05-29] MEDS: Ipratropium/Albuterol Neb 3 ML IH SCH ×4 (04:19→22:18)
[2019-05-29] MEDS: Piperacillin/Tazobactam 3.375 GM in 0.9 % Sodium Chloride Mini Bag 100 ML IVPB SCH ×2 (05:25→18:24)
[2019-05-29] MEDS: Levothyroxine 25 MCG TABLET PO SCH (05:26)
[2019-05-29 05:46] LABS: Basophils % 0.4 %; Eosinophils # 0.1 K/mcL (0.0-0.6); Eosinophils % 2.5 %; Hematocrit 26.8 % (35.3-44.9); Immature Granulocytes % 0.8 % (0-4); Lymphocytes # 1.1 K/mcL (0.6-4.6); Lymphocytes % 20.3 %; Mean Corpuscular HGB Conc 29.9 g/dL (31.6-35.5); Mean Corpuscular Hemoglobin 30.4 pg (28.0-33.3); Mean Corpuscular Volume 101.9 fL (83.0-100.0); Monocytes # 0.7 K/mcL (0.0-1.3); Monocytes % 12.6 %; Neutrophils # 3.3 K/mcL (1.6-8.9); Platelet Count 153 K/mcL (140-400); Red Blood Count 2.63 M/mcL (3.82-4.97); Red Cell Distribution Width 19.4 % (11.5-14.5); Segmented Neutrophils % 63.4 %; White Blood Count 5.2 K/mcL (4.3-11.1)
[2019-05-29 06:07] LABS: Calcium 8.4 mg/dL (8.6-10.3)
[2019-05-29] MEDS ORDERED: 0.9 % Sodium Chloride 250 ML IVC PRN (07:10)
[2019-05-29] MEDS: predniSONE 5 MG TABLET PO SCH ×2 (07:40→10:11)
[2019-05-29] MEDS: Aspirin Enteric Coated 81 MG Tablet PO SCH (07:40)
[2019-05-29] MEDS: Calcium Acetate 667 MG CAPSULE PO SCH ×3 (07:40→16:37)
[2019-05-29] MEDS: Magnesium Oxide 400 MG TABLET PO SCH (07:40)
[2019-05-29] MEDS: amLODIPine 5 MG TABLET PO SCH (07:45)
[2019-05-29] MEDS: 0.9 % Sodium Chloride 1,000 ML PRIME SCH (09:00)
[2019-05-29] MEDS: rOPINIRole 1 MG TABLET PO SCH (21:35)
[2019-05-30] MEDS: Ipratropium/Albuterol Neb 3 ML IH SCH ×4 (03:39→22:25)
[2019-05-30] MEDS: Levothyroxine 25 MCG TABLET PO SCH (05:35)
[2019-05-30] MEDS: Piperacillin/Tazobactam 3.375 GM in 0.9 % Sodium Chloride Mini Bag 100 ML IVPB SCH ×2 (05:35→17:42)
[2019-05-30 06:36] LABS: Basophils % 0.5 %; Eosinophils # 0.1 K/mcL (0.0-0.6); Eosinophils % 2.3 %; Hematocrit 28.3 % (35.3-44.9); Hemoglobin 8.5 g/dL (11.5-15.4); Immature Granulocytes % 0.7 % (0-4); Lymphocytes # 1.2 K/mcL (0.6-4.6); Mean Corpuscular Hemoglobin 29.4 pg (28.0-33.3); Mean Corpuscular Volume 97.9 fL (83.0-100.0); Mean Platelet Volume 11.2 fL (9.4-12.4); Monocytes # 0.7 K/mcL (0.0-1.3); Monocytes % 12.9 %; Neutrophils # 3.6 K/mcL (1.6-8.9); Platelet Count 185 K/mcL (140-400); Red Blood Count 2.89 M/mcL (3.82-4.97); Red Cell Distribution Width 18.7 % (11.5-14.5); Segmented Neutrophils % 62.6 %; White Blood Count 5.7 K/mcL (4.3-11.1)
[2019-05-30] MEDS ORDERED: 0.9 % Sodium Chloride 250 ML IVC PRN (06:50)
[2019-05-30 06:54] LABS: Calcium 8.7 mg/dL (8.6-10.3); Potassium 5.1 mEq/L (3.5-5.1)
[2019-05-30] MEDS: predniSONE 5 MG TABLET PO SCH (08:13)
[2019-05-30] MEDS: Aspirin Enteric Coated 81 MG Tablet PO SCH (08:14)
[2019-05-30] MEDS: amLODIPine 5 MG TABLET PO SCH (08:14)
[2019-05-30] MEDS: Magnesium Oxide 400 MG TABLET PO SCH (08:14)
[2019-05-30] MEDS: Calcium Acetate 667 MG CAPSULE PO SCH ×3 (08:14→17:42)
[2019-05-30] MEDS ORDERED: *HR* Succinylcholine 200 MG/10 ML VIAL IVP ONE (09:57)
[2019-05-30] MEDS ORDERED: *HR* Propofol 200 MG/20 ML VIAL IVP ONE (09:57)
[2019-05-30] MEDS ORDERED: *HR* FentaNYL (PF) 100 MCG/2 ML VIAL ONE (09:57)
[2019-05-30] MEDS ORDERED: *HR* Rocuronium Bromide 50 MG/5 ML VIAL ONE (09:57)
[2019-05-30] MEDS ORDERED: Lidocaine -MPF 4% 5 ML AMPUL ONE (09:57)
[2019-05-30] MEDS ORDERED: Lidocaine -MPF 2% 2 ML VIAL ONE (09:57)
[2019-05-30] MEDS: 0.9 % Sodium Chloride 500 ML IVC SCH (10:14)
[2019-05-30] MEDS ORDERED: Hydrocortisone Sodium Succ 100 MG/2 ML VIAL IVP ONE (10:19)
[2019-05-30] MEDS ORDERED: Dexamethasone 4 MG/ML VIAL ONE (10:19)
[2019-05-30] MEDS ORDERED: Ondansetron 4 MG/2 ML VIAL ONE (10:19)
[2019-05-30] MEDS ORDERED: Lacri-Lube 3.5 GM TUBE ONE (10:25)
[2019-05-30 15:35] LABS: Source of Body Fluid LUL BAL; Source of Body Fluid RUL BAL
[2019-05-30 16:38] LABS: Appearance of Body Fluid Slightly Hazy (Clear); Volume of Body Fluid 20 mL
[2019-05-30 16:39] LABS: Appearance of Body Fluid Clear (Clear); Volume of Body Fluid 18 mL
[2019-05-30] MEDS: rOPINIRole 1 MG TABLET PO SCH (20:49)
[2019-05-31] MEDS: Ipratropium/Albuterol Neb 3 ML IH SCH ×3 (04:03→22:08)
[2019-05-31] MEDS: Levothyroxine 25 MCG TABLET PO SCH (05:42)
[2019-05-31] MEDS: Piperacillin/Tazobactam 3.375 GM in 0.9 % Sodium Chloride Mini Bag 100 ML IVPB SCH ×2 (05:42→21:07)
[2019-05-31] MEDS: 0.9 % Sodium Chloride 500 ML IVC SCH ×2 (06:00→21:05)
[2019-05-31 18:58] LABS: Basophils % 0.3 %; Hematocrit 32.8 % (35.3-44.9); Hemoglobin 10.3 g/dL (11.5-15.4); Immature Granulocytes % 0.8 % (0-4); Lymphocytes % 13.6 %; Mean Corpuscular HGB Conc 31.4 g/dL (31.6-35.5); Mean Corpuscular Hemoglobin 30.9 pg (28.0-33.3); Mean Corpuscular Volume 98.5 fL (83.0-100.0); Mean Platelet Volume 11.8 fL (9.4-12.4); Monocytes # 0.6 K/mcL (0.0-1.3); Monocytes % 7.6 %; Platelet Count 206 K/mcL (140-400); Red Blood Count 3.33 M/mcL (3.82-4.97); Red Cell Distribution Width 18.5 % (11.5-14.5); Segmented Neutrophils % 77.7 %; White Blood Count 7.7 K/mcL (4.3-11.1)
[2019-05-31] MEDS: amLODIPine 5 MG TABLET PO SCH (21:06)
[2019-05-31] MEDS: predniSONE 5 MG TABLET PO SCH (21:06)
[2019-05-31] MEDS: Aspirin Enteric Coated 81 MG Tablet PO SCH (21:06)
[2019-05-31] MEDS: Magnesium Oxide 400 MG TABLET PO SCH (21:06)
[2019-05-31] MEDS: Calcium Acetate 667 MG CAPSULE PO SCH (21:06)
[2019-05-31] MEDS: rOPINIRole 1 MG TABLET PO SCH (22:11)
[2019-06-01 00:38] LABS: Calcium 8.6 mg/dL (8.6-10.3); Phosphorous 4.2 mg/dL (2.7-4.5); Potassium 5.1 mEq/L (3.5-5.1)
[2019-06-01] MEDS: 0.9 % Sodium Chloride 500 ML IVC SCH (02:04)
[2019-06-01] MEDS: Ipratropium/Albuterol Neb 3 ML IH SCH ×2 (03:58→10:04)
[2019-06-01] MEDS: Levothyroxine 25 MCG TABLET PO SCH (06:39)
[2019-06-01] MEDS: Piperacillin/Tazobactam 3.375 GM in 0.9 % Sodium Chloride Mini Bag 100 ML IVPB SCH (06:39)
[2019-06-01 07:45] VITALS: BP 153/100
[2019-06-01] MEDS: Magnesium Oxide 400 MG TABLET PO SCH (07:46)
[2019-06-01] MEDS: Calcium Acetate 667 MG CAPSULE PO SCH (07:46)
[2019-06-01] MEDS: Aspirin Enteric Coated 81 MG Tablet PO SCH (07:46)
[2019-06-01] MEDS: amLODIPine 5 MG TABLET PO SCH (07:46)
[2019-06-01] MEDS: predniSONE 5 MG TABLET PO SCH (07:46)
[2019-06-02 16:29] LABS: Influenza A PCR Body Fluid NOT DETECTED; Influenza B PCR Body Fluid NOT DETECTED; RVP Body Fluid Source BAL
[2019-06-02 16:44] LABS: HSV Source BAL
[2019-06-02 16:45] LABS: HSV Source BAL
[2019-06-03 08:36] LABS: RSV PCR Body Fluid NOT DETECTED
[2019-06-03 08:37] LABS: RSV PCR Body Fluid NOT DETECTED
== END 2019-06-01 11:21 | disposition home or self-care (01) | DRG 193 ==
LOC: 2ANU → SUATTDRO 14:29
PROVIDERS: ADMIT Internal Medicine; ATTEND Internal Medicine